=== PATIENT | male | born 1965 | race Caucasian/White ===

== ENCOUNTER 2017-06-12 18:41 | Inpatient (IN) | payer MEDICAID, OTHER ==
[~2017-06-12] VITALS: Ht 180.3 cm; Wt 117.0 kg
--- NOTE | 2017-06-12 19:03 | NUR ---
JETHRO SILVER AT THE BEDSIDE
--- NOTE | 2017-06-12 19:13 | NUR ---
BLOOD DRAWN & SENT TO LAB.
--- NOTE | 2017-06-12 19:15 | NUR ---
EKG IN PROGRESS
[2017-06-12] MEDS ORDERED: ONDANSETRON HCL/PF 4 MG/2 ML VIAL ONE (19:17)
[2017-06-12] MEDS ORDERED: MORPHINE SULFATE INJ 4 MG/ML DISP.SYRIN ONE (19:17)
[2017-06-12 19:18] LABS: BASOPHILS # (AUTO) 0.2 /CMM (0.0-0.2); BASOPHILS % (AUTO) 1.9 % (0.0-2.0); EOSINOPHILS # (AUTO) 0.4 /CMM (0.0-0.7); EOSINOPHILS % (AUTO) 3.5 % (0.0-6.0); HEMATOCRIT 42 % (39-51); HEMOGLOBIN 14.1 g/dL (13.5-17.5); LYMPHOCYTES # (AUTO) 2.1 /CMM (0.8-4.8); LYMPHOCYTES % (AUTO) 19.6 % (20.0-44.0); MEAN CORPUSCULAR HEMOGLOBIN 26 PG (26.0-33.0); MEAN CORPUSCULAR HGB CONC 34 g/dl (31.0-36.0); MEAN CORPUSCULAR VOLUME 78 fL (80-96); MONOCYTES # (AUTO) 0.7 /CMM (0.1-1.30); MONOCYTES % (AUTO) 6.9 % (2.0-12.0); NEUTROPHILS # (AUTO) 7.1 /CMM (1.8-8.9); NEUTROPHILS % (AUTO) 68.1 % (43.0-81.0); PLATELET COUNT (AUTO) 240 /CMM (150-450); RDW COEFFICIENT OF VARIATION 13.1 (11.5-15.0); RED BLOOD CELL COUNT(AUTO) 5.38 MIL/uL (4.5-6.0); WHITE BLOOD COUNT (AUTO) 10.5 K/uL (4.3-11.0)
--- NOTE | 2017-06-12 19:23 | NUR ---
PT REC'D MEDICATION. GIVEN BY SHILO ULLOA
[2017-06-12] MEDS ORDERED: IV NS 0.9% 500 ML BAG IV ONE (19:30)
[2017-06-12] MEDS ORDERED: ONDANSETRON HCL/PF 4 MG/2 ML VIAL IVP ONE (19:30)
[2017-06-12] MEDS ORDERED: MORPHINE SULFATE INJ 2 MG/ML DISP.SYRIN IV ONE ×2 (19:30→21:30)
--- NOTE | 2017-06-12 19:30 | NUR ---
PT GONE TO CT.
--- NOTE | 2017-06-12 19:44 | NUR ---
PT RETURNED FROM CT.
[2017-06-12 19:45] LABS: INR 0.95 (0.85-1.15)
[2017-06-12 19:47] LABS: CALCIUM, SERUM 9.5 mg/dL (8.5-10.1); CREATININE 0.9 mg/dL (0.6-1.3); POTASSIUM 3.9 mmol/L (3.5-5.1)
[2017-06-12] MEDS ORDERED: HYDROMORPHONE 1 MG/1 ML DISP.SYRIN IV ONE (21:30)
[2017-06-12] MEDS ORDERED: DEXAMETHASONE SOD PHOSPHATE 10 MG/ML VIAL IV ONE (21:30)
[2017-06-12] MEDS ORDERED: METOCLOPRAMIDE HCL 10 MG/2 ML VIAL IV ONE (21:30)
[2017-06-12] MEDS ORDERED: METOCLOPRAMIDE HCL 10 MG/2 ML VIAL ONE (21:37)
[2017-06-12] MEDS ORDERED: DEXAMETHASONE SOD PHOSPHATE 10 MG/ML VIAL ONE (21:37)
[2017-06-12] MEDS ORDERED: HYDROMORPHONE 1 MG/1 ML DISP.SYRIN ONE (21:37)
[2017-06-12] MEDS ORDERED: diphenhydrAMINE HCL 50 MG/ML VIAL ONE (22:04)
--- NOTE | 2017-06-12 22:10 | NUR ---
PT REC'D MEDICATION ORDERED
[2017-06-12] MEDS ORDERED: diphenhydrAMINE HCL 50 MG/ML VIAL IV ONE ×2 (22:30→23:00)
--- NOTE | 2017-06-12 22:40 | NUR ---
CALLED NURSE SUP FOR MED SURG BED
--- NOTE | 2017-06-12 22:54 | NUR ---
MEDR 208-2
--- NOTE | 2017-06-12 22:54 | NUR ---
PT IS GOING TO ROOM #208
--- NOTE | 2017-06-12 22:57 | NUR ---
REPORT GIVEN TO SHILO WING
--- NOTE | 2017-06-12 22:59 | NUR ---
DR. NAZARIO IS AT THE BEDSIDE.
--- NOTE | 2017-06-12 23:01 | NUR ---
[employer] OFF[employer] X[employer] ARE WITH THE PT. PT IS IN CUSTODY.
[2017-06-12] MEDS ORDERED: IV 1/2NS 1000 ML 1,000 ML IV PRN (23:19)
--- NOTE | 2017-06-12 23:25 | NUR ---
RN NOTES RECEIVED PT. FROM ER WITH DX. OF INTRACTABLE HEADACHE, WITH [employer], A/OX4, AMBULATORY, ADMISSION INSTRUCTION WAS RENDERED, CALL LIGHT WITHIN REACH, [id number], CONTINUE TO MONITOR
[2017-06-12 23:30] VITALS: BP 166/107
[2017-06-12] MEDS ORDERED: MAGNESIUM HYDROXIDE 30 ML UDC PO PRN (23:30)
[2017-06-12] MEDS ORDERED: MAG HYDROX/AL HYDROX/SIMETH 30 ML UDC PO PRN (23:30)
[2017-06-12] MEDS ORDERED: Z GUARD REMEDY 2 OZ OINT TP PRN (23:30)
[2017-06-12] MEDS ORDERED: ONDANSETRON HCL/PF 4 MG/2 ML VIAL IVP PRN (23:30)
[2017-06-12] MEDS ORDERED: ZOLPIDEM TARTRATE 5 MG TABLET PO PRN (23:30)
--- NOTE | 2017-06-13 00:10 | NUR ---
RN NOTES PT BLOOD PRESSURE IS IS 166/107, SPOKE TO DR. NAZARIO -NO ORDER WAS GIVEN, JUST MONITOR THE PT
[2017-06-13] MEDS ORDERED: HYDROMORPHONE INJ 2 MG/ML DISP.SYRIN ONE ×2 (00:58→05:39)
[2017-06-13] MEDS: HYDROMORPHONE INJ 2 MG/ML DISP.SYRIN IV PRN ×5 (01:00→21:48)
--- NOTE | 2017-06-13 01:03 | NUR ---
RN NOTES COMPLINED OF TERRIBLE HEADACHE- DILAUDID 1MG IV GIVEN ORDERED, V/S STABLE
--- NOTE | 2017-06-13 05:48 | NUR ---
RN NOTES COMPLAINED OF TERRIBLE HEADACHE-DILAUDID 1MG IV GIVEN ORDERED, V/S STABLE
--- NOTE | 2017-06-13 06:43 | NUR ---
RN NOTES AWAKE, [employer] AT BEDSIDE, , DENIES PAIN AT THIS TIME, NO SOB, MORNING CARE RENDERED, CALL LIGHT WITHIN REACH, [id number], PT. NEEDS ATTENDED
[2017-06-13 06:59] VITALS: BP 159/91
[2017-06-13 07:46] LABS: HEMATOCRIT 42 % (39-51); HEMOGLOBIN 14.3 g/dL (13.5-17.5); LYMPHOCYTES # (AUTO) 0.7 /CMM (0.8-4.8); LYMPHOCYTES % (AUTO) 9.7 % (20.0-44.0); MEAN CORPUSCULAR HEMOGLOBIN 27 PG (26.0-33.0); MEAN CORPUSCULAR HGB CONC 34 g/dl (31.0-36.0); MEAN CORPUSCULAR VOLUME 79 fL (80-96); MONOCYTES % (AUTO) 0.5 % (2.0-12.0); NEUTROPHILS # (AUTO) 6.4 /CMM (1.8-8.9); NEUTROPHILS % (AUTO) 89.8 % (43.0-81.0); PLATELET COUNT (AUTO) 241 /CMM (150-450); RDW COEFFICIENT OF VARIATION 13.5 (11.5-15.0); WHITE BLOOD COUNT (AUTO) 7.1 K/uL (4.3-11.0)
[2017-06-13] MEDS ORDERED: HYDR25TA4 PO ×2 (07:57→11:52)
[2017-06-13] MEDS ORDERED: ASPI-1169 PO (07:57)
[2017-06-13] MEDS ORDERED: ATOR10TA PO ×2 (07:57→11:52)
[2017-06-13] MEDS ORDERED: AMLO10TA2 PO ×2 (07:57→11:52)
[2017-06-13] MEDS ORDERED: LISI40TA4 PO ×2 (07:57→11:52)
[2017-06-13] MEDS ORDERED: TOPI25TA49 PO (07:57)
[2017-06-13 09:31] LABS: ALBUMIN 4.1 g/dL (3.4-5.0); BILIRUBIN,TOTAL 0.5 mg/dL (0.2-1.0); CALCIUM, SERUM 9.6 mg/dL (8.5-10.1); PHOSPHORUS 3.7 mg/dL (2.5-4.9); POTASSIUM 4.4 mmol/L (3.5-5.1); TOTAL PROTEIN, SERUM 8.2 g/dL (6.4-8.2)
[2017-06-13] MEDS ORDERED: KETOROLAC TROMETHAMINE INJ 30 MG/ML VIAL IV STA (11:39)
[2017-06-13] MEDS ORDERED: LORAZEPAM INJ 2 MG/ML VIAL IV ONE (12:30)
--- NOTE | 2017-06-13 13:10 | NUR ---
M/S RN - MRI Patient sent to MRI trailer via wheelchair, ankle bracelet monitoring device in place and can be removed by per Prob[employer] Bryson Liz order. Device removed by and will be replaced by dog control officer after MRI. Informed Officer Liz that pt will be back in 20-30 mins.
--- NOTE | 2017-06-13 13:40 | NUR ---
M/S RN - Notes Patient came back from MRI, probation officer at bedside and attached ankle bracelet monitoring device.
[2017-06-13] MEDS: LISINOPRIL (5MG) 5 MG TABLET PO SCH (15:15)
[2017-06-13 16:00] VITALS: BP 158/99
[2017-06-13] MEDS: ACETAMINOPHEN 325 MG TABLET PO PRN (18:58)
--- NOTE | 2017-06-13 19:28 | NUR ---
MS RN NOTES RECEIVED PT IN BED, AWAKE, A/O X 4, VERBALLY RESPONSIVE. NO DISTRESS NOR SOB NOTED. RESPIRATION IS EVEN AND UNLABORED. IV SITE ON LAC INTACT AND PATENT, NO S/S OF INFILTRATION NOTED, IVF INFUSING WELL. NO C/O PAIN OR DISCOMFORT AT THIS TIME, ALL NEEDS ATTENDED AND MET. PT WITH ANKLE BRACELET MONITORING DEVICE. WILL CONTINUE TO MONITOR.
--- NOTE | 2017-06-13 19:36 | NUR ---
M/S RN - Notes No significant change in condition seen. Patient endorsed to shift supervisor rn accordingly.
[2017-06-13 20:00] VITALS: BP 128/76
--- NOTE | 2017-06-13 21:46 | NUR ---
PT C/O GAS PAIN , MAALOX GIVEN PER PT REQUEST AND ORDERED. WILL CONT TO MONITOR.
--- NOTE | 2017-06-13 22:58 | NUR ---
PT C/O ITCHINESS, D/T DILAUDID AND REQUESTING BENADRYL IVP FOR ITCHINESS, PLACED A CALL TO DR. NAZARIO AND RELAYED PT'S REQUEST , WITH N.O NOTED AND CARRIED OUT.
[2017-06-14] MEDS: diphenhydrAMINE HCL 50 MG/ML VIAL IV PRN ×2 (00:47→13:33)
--- NOTE | 2017-06-14 06:53 | NUR ---
MS RN NOTES PT IN BED, RESTING COMFORTABLY AT THIS TIME, AROUSES EASILY. A/O X 4, VERBALLY RESPONSIVE. NO DISTRESS NOR SOB NOTED. RESPIRATION IS EVEN AND UNLABORED. IV SITE ON LAC INTACT AND PATENT, NO S/S OF INFILTRATION NOTED, IVF INFUSING WELL. NO C/O PAIN OR DISCOMFORT AT THIS TIME, ALL NEEDS ATTENDED AND MET. WILL ENDORSE TO NEXT SHIFT FOR FERMIN.
[2017-06-14 07:53] LABS: BASOPHILS % (AUTO) 0.2 % (0.0-2.0); EOSINOPHILS # (AUTO) 0.1 /CMM (0.0-0.7); EOSINOPHILS % (AUTO) 0.8 % (0.0-6.0); HEMATOCRIT 39 % (39-51); HEMOGLOBIN 13.1 g/dL (13.5-17.5); LYMPHOCYTES # (AUTO) 1.9 /CMM (0.8-4.8); MEAN CORPUSCULAR HEMOGLOBIN 27 PG (26.0-33.0); MEAN CORPUSCULAR HGB CONC 34 g/dl (31.0-36.0); MEAN CORPUSCULAR VOLUME 79 fL (80-96); MONOCYTES # (AUTO) 0.7 /CMM (0.1-1.30); MONOCYTES % (AUTO) 6.1 % (2.0-12.0); NEUTROPHILS % (AUTO) 74.9 % (43.0-81.0); PLATELET COUNT (AUTO) 222 /CMM (150-450); RDW COEFFICIENT OF VARIATION 13.6 (11.5-15.0); RED BLOOD CELL COUNT(AUTO) 4.86 MIL/uL (4.5-6.0); WHITE BLOOD COUNT (AUTO) 10.7 K/uL (4.3-11.0)
[2017-06-14 07:56] LABS: CALCIUM, SERUM 8.7 mg/dL (8.5-10.1); CREATININE 0.9 mg/dL (0.6-1.3); MAGNESIUM 2.2 mg/dL (1.8-2.4); PHOSPHORUS 3.6 mg/dL (2.5-4.9); POTASSIUM 4.1 mmol/L (3.5-5.1)
[2017-06-14 08:00] VITALS: BP 143/90
[2017-06-14] MEDS: LISINOPRIL (5MG) 5 MG TABLET PO SCH (08:18)
[2017-06-14] MEDS: HYDROMORPHONE INJ 2 MG/ML DISP.SYRIN IV PRN ×2 (08:19→12:26)
[2017-06-14] MEDS: ACETAMINOPHEN 325 MG TABLET PO PRN (15:18)
[2017-06-14 16:00] VITALS: BP 131/80
--- NOTE | 2017-06-14 17:00 | NUR ---
M/S RN - Discharge Patient A/O x 4, denies pain, not in any form of distress, no c/o n/v, BP controlled, discharged to home in stable condition. Skin is intact, refused photo to be taken. All belongings with the patient and he denies any missing items. Reviewed discharge instructions with patient and Taniya both verbalized understanding of all teachings. Patient also aware that he needs to f/u with his PCP in 3 days regarding workup for secondary hypertension and e-prescription were sent to his preferred pharmacy ([facility]). Discharge papers given per protocol. Accompanied to the lobby by Offal Separator Mark and Taniya.
[2017-06-19 06:13] LABS: RENIN, PLASMA 1.265 ng/mL/hr (0.167-5.380)
== END 2017-06-14 17:00 | disposition home or self-care (01) | DRG 58 ==
LOC: ER 18:47 → MEDSG2 23:03
PROVIDERS: ADMIT Internal Medicine; ATTEND Internal Medicine
DX: D32.9 Benign neoplasm of meninges, unspecified (principal); I10 Essential (primary) hypertension; R51 Headache; Z98.84 Bariatric surgery status
CPT/HCPCS: 36415; 70450-TC; 70551-TC; 71045-TC; 76770-TC; 80048-TC; 80053-TC; 80061-TC; 82088; 82533; 83735-TC; 84100-TC; 84244; 84484-TC; 85025-TC; 85730-TC; 87081-TC; A4606; J1100; J1170; J1200; J1885; J2060; J2270; J2405; J2765; J7040; Z7610